=== PATIENT | male | born 1960 | race Caucasian/White ===

== ENCOUNTER 2017-02-05 14:08 | Emergency (ER) | payer OTHER ==
[2017-02-05 15:35] LABS: CALCIUM 10.3 mg/dL (8.5-10.1); CARBON DIOXIDE 29.4 mmol/L (21-32); CHLORIDE SERUM 103 mmol/L (98-107); CREATININE SERUM 1.3 mg/dL (0.7-1.3); GFR1 > 60 mL/min; GLUCOSE SERUM 134 mg/dL (74-106); POTASSIUM SERUM 4.4 mmol/L (3.5-5.1); SODIUM SERUM 139 mmol/L (136-145)
[2017-02-05 15:43] LABS: BASOPHIL % 0.4 % (0-2); PLATELET COUNT 270 x10^3mcL (130-400); RED CELL DISTRIBUTION WIDTH 12.6 % (11.5-14.5)
[2017-02-05 15:45] LABS: ALBUMIN 4.1 g/dL (3.4-5.0); ALKALINE PHOSPHATASE 72 U/L (46-116); ALT/SGPT 26 U/L (16-63); AST/SGOT 15 U/L (15-37); BILIRUBIN TOTAL 0.72 mg/dL (0.20-1.00); HDL CHOLESTEROL 37 mg/dL (40-60); URIC ACID 9.2 mg/dL (3.5-7.2)
[2017-02-05 15:46] LABS: CHOLESTEROL 225 mg/dL (<200); TOTAL PROTEIN, SERUM 8.3 g/dL (6.4-8.2)
[2017-02-05 16:21] VITALS: BP 124/86
== END 2017-02-05 16:21 | disposition home or self-care (01) ==
LOC: ED 14:08
PROVIDERS: Emergency Medicine
DX: T67.5XXA Heat exhaustion, unspecified, initial encounter (principal); I10 Essential (primary) hypertension; E78.00 Pure hypercholesterolemia, unspecified; X58.XXXA Exposure to other specified factors, initial encounter; Y93.89 Activity, other specified; Y99.8 Other external cause status; Y92.89 Other specified places as the place of occurrence of the external cause
CPT/HCPCS: 83880